=== PATIENT | female | born 1990 | race Caucasian/White ===

== ENCOUNTER 2017-01-21 05:19 | Day surgery (SDC) | payer MEDICAID ==
[2017-01-19 11:37] LABS: BASOPHILS 0.5 % (0.0-2.0); EOSINOPHILS 6.1 % (0-7); HEMATOCRIT 38.1 % (36.0-48.0); HEMOGLOBIN 12.5 g/dL (12-16); IMMATURE GRANULOCYTES 0.3 % (0-5); LYMPHOCYTES 21.2 % (15-50); MCH 27.5 pg (26.0-34.0); MCHC 32.8 g/dL (31.0-37.0); MCV 83.7 fL (80.0-100.0); MEAN PLATELET VOLUME 10.4 fL (7.4-10.4); MONOCYTES 8.1 % (2-11); NEUTROPHILS 63.8 % (40-80); RBC 4.55 10x6/uL (4.00-5.40); RDW 13.9 % (11.5-14.5); WBC 7.7 10x3/uL (4.8-10.8)
[2017-01-19 11:38] LABS: PLATELET COUNT 226 10x3/uL (130-400)
[~2017-01-21] VITALS: Ht 172.7 cm; Wt 74.8 kg
[~2017-01-21 05:19] MED LIST: MOTRIN600 MG PO; PERCOCET 5-3251 TAB PO; PRENATAL COMPLE1 TAB PO
--- NOTE | 2017-01-21 07:12 | HP ---
PATIENT: RACHAEL KELLER MEDICAL RECORD: [id number] ACCOUNT: [id number] LOCATION:[facility] : 91 ADMISSION DATE: 01/21/17 HISTORY AND PHYSICAL EXAMINATION DATE: 01/20/2017 HISTORY OF PRESENT ILLNESS: This patient is a 26-year-old 1, para 1 white female with cervical biopsy confirming severe dysplasia. She is scheduled for a LEEP procedure for more accurate biopsy and possible cure of severe dysplasia. MEDICAL HISTORY: DRUG ALLERGIES: None known. CURRENT MEDICATIONS: Oral contraceptives. MEDICAL PROBLEMS: No diabetes, hypertension, kidney problems, thyroid problems. FAMILY HISTORY: Noncontributory. REVIEW OF SYSTEMS: No chest pain, no dyspnea. SOCIAL HISTORY: The patient is single, former smoker. No ethanol use. PHYSICAL EXAMINATION: GENERAL: A well-developed, well-nourished white female in no distress. VITAL SIGNS: Weight is 168, blood pressure 100/60. HEENT: Unremarkable. LUNGS: Clear. HEART: Regular rate and rhythm. ABDOMEN: Soft and nontender. PELVIC: Examination is current and deferred for anesthesia. EXTREMITIES: No cyanosis, clubbing or edema. NEUROLOGIC: Grossly intact. 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 PLAN: A LEEP excision of the ectocervix with endocervical curettage under general anesthesia. I have discussed the above plan with the patient and answered all her questions. She understands risks of procedure, anesthesia, infection, bleeding, injury to nearby structures. TRANSINT:[id number] Voice Confirmation ID: [id number] DOCUMENT ID: [id number] HISTORY AND PHYSICAL [id number] RACHAEL KELLER BRENDA MD at 0712 CC: [id number] DICTATION DATE: 01/20/17 0738 [employer]LECT[employer] OPERATOR: 01/20/17 0831 [facility] [address] [place] [address]
[2017-01-21 08:38] VITALS: BP 108/64; Ht 172.7 cm; Wt 74.8 kg
[2017-01-21 08:49] LABS: HCG URINE NEGATIVE (NEGATIVE)
[2017-01-21] MEDS ORDERED: IBUPROFEN600 MG PO (13:17)
--- NOTE | 2017-02-09 08:25 | OP ---
PATIENT NAME: RACHAEL KELLER MEDICAL RECORD: [id number] :89 LOCATION:[facility] ADMISSION DATE: SURGEON: TARAH PEREZ MD DATE OF OPERATION: 01/21/2017 PREOPERATIVE DIAGNOSIS: Severe cervical dysplasia confirmed by biopsy. POSTOPERATIVE DIAGNOSIS: Severe cervical dysplasia confirmed by biopsy. PROCEDURES: LEEP excision of the ectocervix and endocervical curettage. ANESTHESIA: General and local. FINDINGS: Nonstaining area especially located on the lower lip of the cervix using acetic acid solution and Lugol solution. ESTIMATED BLOOD LOSS: Minimal. COMPLICATIONS OF PROCEDURE: None. OPERATIVE NOTE: The patient was taken to the OR and under adequate general anesthesia, prepped and draped in the usual manner for vaginal procedures with legs in floating boot Jeison stirrups. Colposcope was used to evaluate the cervix using acetic acid solution and followed by Lugol solution with the above-listed findings. Local anesthetic was then administered circumferentially to aid in hemostasis and postoperative pain relief. A 15 mm LEEP loop was used to excise the entire lesion, which was sent to pathology for further evaluation. This was followed by endocervical curettage, also sent as a separate specimen. At the end of procedure, ball cautery was used at the LEEP margins for hemostasis with good result. Astringent was applied and the patient went to the recovery area in good condition. TRANSINT:[id number] Voice Confirmation ID: [id number] DOCUMENT ID: [id number] TARAH PEREZ MD at 0825 CC: [id number] DICTATION DATE: 01/21/17 1217 CORRAL BOSS: 01/21/17 1939 [facility] 01/21/17 [facility] [address] [place] [address]
== END 2017-01-21 14:05 | disposition home or self-care (01) ==
LOC: D.OPS 05:19
PROVIDERS: Obstetrics & Gynecology
DX: D06.0 Carcinoma in situ of endocervix (principal); N72 Inflammatory disease of cervix uteri; Z79.3 Long term (current) use of hormonal contraceptives; Z87.891 Personal history of nicotine dependence